=== PATIENT | male | born 1995 | race Caucasian/White ===

== ENCOUNTER 2020-02-14 06:31 | Emergency (ER) | payer OTHER ==
[~2020-02-14] VITALS: Ht 182.9 cm; Wt 90.7 kg
[2020-02-14 06:36] VITALS: BP 148/94
--- NOTE | 2020-02-14 06:47 | NUR ---
DR RUFFIN AT BED SIDE
--- NOTE | 2020-02-14 07:11 | NUR ---
strep and covid swab sent
--- NOTE | 2020-02-15 08:01 | NUR ---
received covid positive result, called the patient, no answer, left a voicemail to call back.
== END 2020-02-14 07:12 | disposition home or self-care (01) ==
LOC: ER 06:31
DX: U07.1 COVID-19 (principal); R43.9 Unspecified disturbances of smell and taste; J02.9 Acute pharyngitis, unspecified
CPT/HCPCS: 87070; 87880; 99283; C9803; U0003; 86403-TC

== ENCOUNTER 2020-02-21 10:54 | Emergency (ER) | payer OTHER ==
[~2020-02-21] VITALS: Ht 182.9 cm; Wt 81.6 kg
[2020-02-21 10:58] VITALS: BP 135/72
== END 2020-02-21 11:07 | disposition home or self-care (01) ==
LOC: ER 10:56
DX: B34.9 Viral infection, unspecified (principal); U07.1 COVID-19

== ENCOUNTER 2023-05-03 13:00 | Emergency (ER) | payer OTHER ==
[~2023-05-03] VITALS: Ht 182.9 cm; Wt 95.3 kg
[2023-05-03 13:15] VITALS: BP 142/95; TEMP 98.4; O2SAT 98
[2023-05-03] MEDS ORDERED: IBUPROFEN 400 MG TABLET ONE (13:38)
[2023-05-03] MEDS ORDERED: IBUPROFEN 400 MG TABLET PO ONE (14:00)
[2023-05-03] MEDS ORDERED: AMOX500C2 PO (15:20)
== END 2023-05-03 15:26 | disposition home or self-care (01) ==
LOC: ER 13:00
DX: J02.9 Acute pharyngitis, unspecified (principal)
CPT/HCPCS: 86403-TC

== ENCOUNTER 2024-12-04 06:48 | Emergency (ER) | payer OTHER ==
[~2024-12-04] VITALS: Ht 177.8 cm; Wt 102.1 kg
[~2024-12-04 06:48] MED LIST: AMOX500C2 PO
[2024-12-04 07:31] LABS: PLATELET COUNT (AUTO) 231 K/uL (150-450); RED BLOOD CELL COUNT(AUTO) 5.79 MIL/uL (4.5-6.0); RED CELL DISTRIBUTION WIDTH 13.2 % (11.5-15.0); WHITE BLOOD COUNT (AUTO) 7.7 K/uL (4.3-11.0)
[2024-12-04 07:40] LABS: CALCIUM, SERUM 9.0 mg/dL (8.5-10.1); CREATININE 0.9 mg/dL (0.6-1.3); SODIUM SERUM 140 mmol/L (136-145); UREA NITROGEN, BLOOD 20 mg/dL (7-18)
[2024-12-04 07:46] LABS: ASPARTATE AMINOTRANSFERASE 33 U/L (15-37); TOTAL PROTEIN, SERUM 7.8 g/dL (6.4-8.2)
[2024-12-04 08:30] VITALS: BP 135/81; TEMP 98.1; O2SAT 99
== END 2024-12-04 08:30 | disposition home or self-care (01) ==
LOC: ER 06:48
DX: R10.9 Unspecified abdominal pain (principal); R07.9 Chest pain, unspecified; Z79.899 Other long term (current) drug therapy
CPT/HCPCS: 36415; 71045-TC; 80048-TC; 80076-TC; 83690-TC; 84484-TC; 85025-TC